=== PATIENT | female | born 1975 | race Caucasian/White ===

== ENCOUNTER 2021-04-30 08:46 | Outpatient (CLI) | payer OTHER, SELFPAY ==
--- NOTE | ~2021-04-30 | MM_ITS ---
EXAMINATION: MM screening [facility] w angel[facility] HISTORY: Screening mammogram TECHNIQUE: Craniocaudal and mediolateral oblique 3-D tomosynthesis images were obtained and synthetic 2-D images were generated. CAD analysis was submitted and interpreted. COMPARISON: None, baseline BREAST PARENCHYMAL COMPOSITION: The breasts are heterogeneously dense, which may obscure small masses . FINDINGS: There is no evidence of suspicious mass, calcification, or architectural distortion to sugg est malignancy in either breast. IMPRESSION: 1. No mammographic evidence of malignancy. 2. Recommend routine screening mammography in one year. BI-RADS Category 1: Negative Reviewed, dictated and finalized at location A. S CUTTER
== END 2021-04-30 08:47 | disposition home or self-care (01) ==
LOC: ANHIMG 08:50
PROVIDERS: Visit Provider Nurse Practitioner Obstetrics & Gynecology
DX: Z12.31 Encounter for screening mammogram for malignant neoplasm of breast (principal)
CPT/HCPCS: 77063; 77067

== ENCOUNTER 2021-06-08 09:44 | Outpatient (CLI) | payer OTHER, SELFPAY ==
--- NOTE | ~2021-06-08 | XR_ITS ---
EXAMINATION: XR thoracic spine 3V DATE: 06/08/2021 10:23 INDICATION: Chronic back pain TECHNIQUE: AP, lateral and lateral swimmer's views of the thoracic spine were obtained. COMPARISON: None. FINDINGS: There is no fracture, dislocation, or subluxation. The vertebral body heights, alignment, a nd intervertebral disc spaces are normal. The paravertebral soft tissues are unremarkable. IMPRESSION: 1. Unremarkable thoracic spine. Reviewed, dictated and finalized at location A.
--- NOTE | ~2021-06-08 | XR_ITS ---
EXAMINATION:XR_[id number]_CR DATE: 06/08/2021 10:22 INDICATION: Neck pain TECHNIQUE: AP, lateral, and odontoid views of the cervical spine are provided. COMPARISON: None FINDINGS: There is reversal of the normal cervical lordosis. Bone alignment is normal. The odontoid i s intact. No fracture is identified. The vertebral body heights are maintained. There is mild loss of intervertebral disc space height at C4-5. Prevertebral soft tissues are normal. IMPRESSION: 1. Mild cervical spondylosis at C4-5. Reviewed, dictated and finalized at location A.
--- NOTE | ~2021-06-08 | XR_ITS ---
EXAMINATION: XR lumbar spine 2-3V DATE: 06/08/2021 10:22 INDICATION: Low back pain TECHNIQUE: Anteroposterior and lateral views of the lumbar spine, and cone-down lateral view of the l umbosacral junction were obtained. COMPARISON: None. FINDINGS: Thoracic dextrocurvature is noted. The vertebral body heights, alignment, and intervertebra l disc spaces are normal. There is no fracture. Phleboliths are noted in the pelvis. A calcification of the right upper quadrant reflect cholelithiasis versus nephrolithiasis. IMPRESSION: 1. Unremarkable lumbar spine. Reviewed, dictated and finalized at location A.
== END 2021-06-08 09:45 | disposition home or self-care (01) ==
PROVIDERS: PCP Emergency Medicine
DX: M51.36 Other intervertebral disc degeneration, lumbar region (principal); M51.37 Other intervertebral disc degeneration, lumbosacral region; M51.16 Intervertebral disc disorders with radiculopathy, lumbar region; M51.17 Intervertebral disc disorders with radiculopathy, lumbosacral region; M47.812 Spondylosis without myelopathy or radiculopathy, cervical region; M50.323 Other cervical disc degeneration at C6-C7 level; M51.34 Other intervertebral disc degeneration, thoracic region; M47.814 Spondylosis without myelopathy or radiculopathy, thoracic region; M47.894 Other spondylosis, thoracic region
CPT/HCPCS: 72040; 72072; 72100